=== PATIENT | male | born 1955 | race Caucasian/White ===

== ENCOUNTER 2024-08-05 01:43 | Observation (INO) | payer OTHER, SELFPAY ==
[2024-08-04 19:58] VITALS: BP 148/69
[2024-08-04 20:26] LABS: % Basophils 0.2 % (0-2); % Immature Granulocytes 0.6 % (0-0.5); % Lymphocytes 3.9 % (20.5-51.1); % Monocytes 10.4 % (1.7-9.3); % Neutrophils 84.9 % (42.2-75.2); Absolute Immature Granulocytes 0.1 10^3/uL (0-0.05); Absolute Lymphocytes 0.7 10^3/uL (1.2-3.4); Absolute Monocytes 1.9 10^3/uL (0.1-0.6); Absolute Neutrophils 15.2 10^3/uL (1.4-6.5); Hematocrit 31.8 % (39.0-52.0); Hemoglobin 10.5 g/dL (13.0-18.0); Mean Corpuscular Hgb 33.9 pg (27.0-31.0); Mean Corpuscular Volume 102.6 fL (80.0-94.0); Mean Platelet Volume 10.7 fL (7.4-10.4); Nucleated Red Blood Cells % 0 % (-); Platelet Count 185 10^3/uL (130-400); Red Cell Dist. Width 13.4 % (11.5-14.5); White Blood Cell Count 17.9 10^3/uL (4.8-10.8)
[2024-08-04 20:27] LABS: Urine Albumin 3+ (Neg - Trace); Urine Bilirubin Negative (Negative); Urine Character Cloudy (Clear); Urine Color Yellow; Urine Glucose Negative (Negative); Urine Ketone Negative (Negative); Urine Leukocyte 2+ (Negative); Urine Nitrite Negative (Negative); Urine Occult Blood 4+ (Negative); Urine Specific Gravity 1.025 (<1.030); Urine Urobilinogen 1+ (Neg - 1+)
[2024-08-04 20:34] LABS: Urine Red Blood Cell 50-60 /HPF (0-2); Urine Squamous Cell 0-2 /LPF (Few)
[2024-08-04 20:35] LABS: Lactic Acid 2.1 mmol/L (0.7-2.0); Urine Bacteria Few (Negative)
[2024-08-04 20:43] LABS: COVID-19 Antigen Negative (Negative)
[2024-08-04 20:46] LABS: ALT (SGPT) 19 U/L (0-50); AST (SGOT) 20 U/L (17-59); Alkaline Phosphatase 53 U/L (38-126); Blood Urea Nitrogen 21 mg/dl (9-20); Calcium 8.8 mg/dl (8.4-10.2); Carbon Dioxide 27 mmol/L (22-30); Chloride 101 mmol/L (98-107); Glucose 177 mg/dl (70-99); Potassium 4.6 mmol/L (3.5-5.1); Sodium 138 mmol/L (135-145); Total Bilirubin 0.9 mg/dl (0.2-1.3); Total Protein 6.9 g/dl (6.3-8.2); eGFR 50.71
[2024-08-04 21:47] VITALS: BMI 32.7
[2024-08-04 22:43] VITALS: BP 155/70
[2024-08-04] MEDS: NSS 1000 IV (22:43)
[2024-08-04] MEDS: ROCEPHIN 1000 MG IV (23:42)
--- NOTE | 2024-08-04 23:42 | ED.GENMED ---
History of Present Illness
General
Chief Complaint: Fever
Source: patient
Exam Limitations: none
Time Seen by Provider: 08/04/24 21:34
History of Present Illness
History of Present Illness:
68-year-old male presents with fever as high as 101-102 at home with weakness dysuria and hematuria. No cough or vomiting. He has been nauseous. No chest pain or shortness of breath. No flank pain. No other complaints at this time.
Past History
Past History
ED Past Medical History: Cancer (CML in remission, followed at [facility]), HTN and Other (GI bleeding)
ED Past Surgical History: Other (EGD)
Phy Exam
Physical Exam
Physical Exam:
General: Well appearing male NAD
HEENT: Normocephalic atraumatic
Heart: Tachycardic but regular lungs: Clear no wheeze
Abdomen is soft mild suprapubic tenderness no guarding or rebound
Extremities: No cyanosis or edema
Sepsis
Sepsis Screening
Sepsis Assessment: Sepsis
Sepsis Screen
Sepsis Screen: Sepsis
Date: 08/04/24
Time: 23:48
Course
Orders/Labs/Results
Orders:
Orders
08/04/24 20:12
COVID-19 Antigen Urgent
Source: Nasal Swab
Complete Blood Count/With Diff Urgent
Comprehensive Metabolic Panel Urgent
Lactic Acid Q4H
Comment: ON ICE, CANCEL 2ND ORDER IF FIRST LACTIC ACID LEVEL <2
Urinalysis Reflex To Culture Urgent
Date Specimen was Collected: 08/04/24
Time Specimen was Collected: 20:01
Urine Microscopic Reflex Cult Urgent
Influenza A+B Rapid Molecular Urgent
SPARKLE Source: Nasal Swab
Specimen Description:
Date Specimen was Collected: 08/04/24
Time Specimen was Collected: 20:01
Urine Culture Urgent
SPARKLE Source: U
Specimen Description:
Date Specimen was Collected: 08/04/24
Time Specimen was Collected: 20:01
08/04/24 22:40
CT Abd/pel Without Iv Or Oral Urgent
Comment:
Reason For Exam: hematuria
0.9% Sodium Chloride 1000 ml [Nss] 1,000 ml IV BOLUS
08/04/24 23:35
CefTRIAXone [Rocephin] 1,000 mg IV NOW STA
08/04/24 23:39
Sterile Water [Sterile Water For Injection] 10 ml .ROUTE .[facility]
08/04/24 23:45
Blood Culture Q30M
SPARKLE Source: Blood/Venous
Specimen Description:
08/05/24 00:15
Lactic Acid Q4H
Comment: ON ICE, CANCEL 2ND ORDER IF FIRST LACTIC ACID LEVEL <2
Blood Culture Q30M
SPARKLE Source: Blood/Venous
Specimen Description:
Abnormal Lab Results
08/04/24
20:12
WBC 17.9 H 10^3/uL
(4.8-10.8)
RBC 3.10 L 10^6/uL
(4.70-6.10)
Hgb 10.5 L g/dL
(13.0-18.0)
Hct 31.8 L %
(39.0-52.0)
MCV 102.6 H fL
(80.0-94.0)
MCH 33.9 H pg
(27.0-31.0)
MPV 10.7 H fL
(7.4-10.4)
Abs Immat Gran (auto) 0.1 H 10^3/uL
(0-0.05)
Absolute Neuts (auto) 15.2 H 10^3/uL
(1.4-6.5)
Absolute Lymphs (auto) 0.7 L 10^3/uL
(1.2-3.4)
Absolute Monos (auto) 1.9 H 10^3/uL
(0.1-0.6)
Immature Gran % 0.6 H %
(0-0.5)
Neutrophils % 84.9 H %
(42.2-75.2)
Lymphocytes % 3.9 L %
(20.5-51.1)
Monocytes % 10.4 H %
(1.7-9.3)
BUN 21 H mg/dl
(9-20)
Creatinine 1.5 H mg/dL
(0.7-1.3)
Glucose 177 H mg/dl
(70-99)
Lactic Acid 2.1 H mmol/L
(0.7-2.0)
Ur Occult Blood Reflex 4+ A
(Negative)
Leukocyte Esterase Rfl 2+ A
(Negative)
Urine RBC 50-60 A /HPF
(0-2)
Urine Bacteria (Reflex) Few A
(Negative)
Urine Albumin (Reflex) 3+ A
(Neg - Trace)
08/04/24 20:12
08/04/24 20:12
Vital Signs
Initial and Last Documented VS:
Initial Vital Signs
Temp Pulse Resp BP Pulse Ox
98.5 F 112 24 148/69 96
08/04/24 19:58 08/04/24 19:58 08/04/24 19:58 08/04/24 19:58 08/04/24 19:58
Last Documented Vital Signs
Temp Pulse Resp BP Pulse Ox
98.7 F 98 19 148/69 94
08/04/24 21:49 08/04/24 22:30 08/04/24 22:00 08/04/24 19:58 08/04/24 22:15
MDM/Problems Addressed
Differential Diagnosis Includes:
Patient with fever dysuria and hematuria. Question UTI versus kidney stone versus cystitis
Will check COVID and flu test secondary to fever
COVID and flu were negative. Urinalysis shows hematuria with few bacteria and 6-10 white blood cells per high-power field. CT findings suggestive of cystitis. White count of 17.9 with a lactic of 2.1. Initially he was tachycardic. Will order
fluids and treat with Rocephin and admit to hospital for cystitis
*Critical Care Note
Total Time (30-74mins, 75-104mins- exclusive of procedures): Not Applicable
ED Attending Note
-
Portions of this chart may have been created with voice recognition software.� Occasional wrong word or��sound alike� substitutions may have occurred due to the inherent limitations of voice recognition software.
Discharge Plan
Departure
Patient Disposition: Admit
Date of Disposition: 08/04/24
Time of Disposition: 23:47
Presentation/result/management discussed w/ accepting MD/DO: Hospitalist
Discharge Problem:
Cystitis
Prescriptions:
No Action
methotrexate sodium 2.5 mg Tablet
2.5 mg PO QMWF
amlodipine 10 mg Tablet
10 mg PO DAILY
folic acid 1 mg Tablet
1 mg PO DAILY
losartan 100 mg Tablet
100 mg PO DAILY
imatinib 400 mg Tablet
400 mg PO .@ 1200
pantoprazole [Protonix] 40 mg tablet,delayed release (DR/EC)
40 mg PO Q12H Qty: 60 0RF
ferrous sulfate 325 mg (65 mg iron) Tablet
325 mg PO Q48H Qty: 0 0RF
Interventions
Interventions:
*Risk Screen - Suicide Last Done: 08/04/24 21:47
*General Assessment Last Done: 08/04/24 21:47
*Neglect/Abuse Screening Last Done: 08/04/24 21:47
*ED- Fall Risk Assessment Last Done: 08/04/24 21:47
*ED COVID-19 Vaccine History Last Done: 08/04/24 21:47
ED-Male Genitourinary Assessment Last Done: 08/04/24 22:37
ED- Neurological Assessment Last Done: 08/04/24 22:37
ED-Skin Assessment Last Done: 08/04/24 22:37
Discharge Date and Time
Print Language: MACEDONIAN
[2024-08-04] MEDS: ZOFRAN 4 MG IV (23:53)
[2024-08-05 00:30] LABS: Lactic Acid 1.1 mmol/L (0.7-2.0)
--- NOTE | 2024-08-05 01:19 | HPS.HSE ---
Family Physician
-
Family Physician: Aliyah Garza
Chief Complaint
-
Fever, hematuria
History of Present Illness
68-year-old with past medical history significant for CML on imatinib, hypertension, GERD with history of GI bleed, rheumatoid arthritis on Plaquenil who presents to the emergency department with approximately 2 days of intermittent fevers with
urinary symptoms and hematuria.
Patient apparently started having urinary frequency on Tuesday. He also had dysuria. He then had hematuria twice today. He said he had a fever at home and was having shaking chills. He denies any flank pain. He denies nausea or vomiting. He has
no recent instrumentation. He denies any history of kidney stones. He denies any history of BPH, prostate cancer, urinary retention, radiation or urological surgery. He has no prior history of UTI. He reports he has been on imatinib for over 20
years. He is not on any other immunosuppressants.
In the emergency department the patient was afebrile, blood pressure was 140/60 with a pulse of 98 and was satting 94% on room air. He had a white count of 17, hemoglobin and platelets show at 10.5 and 185 respectively. Initial lactic acid was
2.1. BUN and creatinine slightly increased compared to his baseline of 1. Creatinine was 1.5.
UA was positive with RBCs WBCs and a few bacteria. He had a CT of the abdomen pelvis showing urinary wall bladder thickening and stranding of the fat surrounding the bladder consistent with cystitis. Kidneys appeared normal and there was no
evidence of ureteral calculi.
Medical History
Past Medical History
Past Medical History: Reports Cancer (CML), GERD, HTN and Other (Rheumatoid arthritis)
Past Surgical History: Reports None
Social History
Tobacco: Non-smoker
Alcohol: Occasional
Drug: None
Personal:
Living: With Family
Employment: Employed
Family History
Family History: Not pertinent
Allergies / Home Medications
Allergies reflects when Allergies were last updated in [facility].
Home Medications with original date entered in [facility]
Allergy/Medication List:
Allergies
Allergy/AdvReac Type Severity Reaction Status Date / Time
aspirin Allergy Unknown Verified 08/15/22 21:58
Home Medications
amlodipine 10 mg tablet 10 mg PO DAILY Blood pressure 02/28/22
imatinib 400 mg tablet 400 mg PO .@ 1200 Autoimmune disorder 02/28/22
losartan 100 mg tablet 100 mg PO DAILY Blood pressure 02/28/22
hydroxychloroquine 200 mg tablet (Plaquenil) 200 mg PO BID 08/04/24
pantoprazole 20 mg tablet,delayed release 20 mg PO DAILY 08/04/24
Review of Systems
-
History Source: Patient
Constitutional: Reports Fever
EENT: Reports No Symptoms
Respiratory: Reports No Symptoms
Cardiac: Reports No Symptoms
Abdomen/GI: Reports No Symptoms
: Reports Dysuria, Frequency and Bleeding
Musculoskeletal: Reports No Symptoms
Skin: Reports No Symptoms
Neurological: Reports No Symptoms
Endocrine: Reports No Symptoms
Hematologic/Lymphatic: Reports No Symptoms
Psych: Reports No Symptoms
Physical Exam
Vital Signs
Vital Signs
Temp Pulse Resp BP Pulse Ox
99.0 F 99 19 155/70 93
08/05/24 00:00 08/05/24 01:00 08/05/24 00:00 08/04/24 22:43 08/05/24 00:45
Physical Exam
General: Well Developed, Well Nourished and Conversant
HEENT: NormoCephalic, Anicteric, Moist mucous membranes, Atraumatic and PERRLA; No Oxygen
Respiratory: Clear
Cardiac: S1/S2 and Regular Rhythm
Breast: Deferred by me
GI: Soft, Non Tender, Non Distended and Normal Bowel Sounds
Rectal: Deferred by Provider
Genito-urinary: Deferred by me
Musculoskeletal: No Clubbing, No Cyanosis and No Edema
Skin: Warm
Neuro: AO x 3 and Nonfocal/grossly intact
Hematologic/Lymphatic: No Lymphadenopathy
Psych: Calm
Laboratory Results
-
08/04/24 20:12
08/04/24 20:12
Laboratory Results
Lactic Acid 1.1 mmol/L (0.7-2.0) 08/05/24 00:10
Total Bilirubin 0.9 mg/dl (0.2-1.3) 08/04/24 20:12
AST 20 U/L (17-59) 08/04/24 20:12
ALT 19 U/L (0-50) 08/04/24 20:12
Alkaline Phosphatase 53 U/L (38-126) 08/04/24 20:12
Data Reviewed
-
CT Scan: Report Reviewed by me
Lab Data: Labs Reviewed by me
Impression/Plan
-
IMPRESSION:
This is a 68-year-old with history of CML, rheumatoid arthritis, hypertension and GERD presents to the emergency department with fever, urinary frequency, hematuria and found to have cystitis on imaging, has a positive UA and significant peripheral
leukocytosis to 17. The picture is clearly consistent with acute cystitis. Unclear predisposing factors as patient has no history of urinary retention, BPH, kidney stones, surgery instrumentation or significant immunosuppression. No known
malignancy.
PLAN:
1. Cystitis - complicated, no evidence of prostatitis or pyelo
- admit to med/surg
- blood and urine cultures sent
- viral panel negative
- IV ceftriaxone for now
- will need repeat u/a for hematuria after completion of abx. If +, will need urology outpatient.
2. HTN
- continue amlodipine and losartan
3. CML
- continue imatinib
4. CKD - I suspect C r1.5 is CKD possibly in setting of arb use
- IV fluids overnigh and monitor for urinary retention
DVT PPX - heparin sq
Code status full code
[2024-08-05] MEDS: NSS 1000 IV (05:13)
[2024-08-05 05:30] LABS: Hematocrit 27.6 % (39.0-52.0); Hemoglobin 9.4 g/dL (13.0-18.0); Mean Corp Hgb Conc. 34.1 g/dL (33.0-37.0); Mean Corpuscular Hgb 34.4 pg (27.0-31.0); Mean Corpuscular Volume 101.1 fL (80.0-94.0); Mean Platelet Volume 10.6 fL (7.4-10.4); Platelet Count 164 10^3/uL (130-400); Red Blood Cell Count 2.73 10^6/uL (4.70-6.10); Red Cell Dist. Width 13.5 % (11.5-14.5); White Blood Cell Count 13.7 10^3/uL (4.8-10.8)
[2024-08-05 05:42] LABS: Blood Urea Nitrogen 19 mg/dl (9-20); Calcium 8.2 mg/dl (8.4-10.2); Carbon Dioxide 28 mmol/L (22-30); Chloride 104 mmol/L (98-107); Estimated Creatinine Clearance 62 ml/min; Glucose 152 mg/dl (70-99); Potassium 4.1 mmol/L (3.5-5.1); Sodium 137 mmol/L (135-145); eGFR > 60.00
[2024-08-05] MEDS: TYLENOL 650 MG PO ×2 (08:27→18:28)
[2024-08-05] MEDS: HEPARIN 5000 UNITS SC ×2 (08:28→17:07)
[2024-08-05] MEDS: NORVASC 10 MG PO (08:28)
[2024-08-05] MEDS: PLAQUENIL 200 MG PO (08:28)
[2024-08-05 08:33] VITALS: BP 135/71
[2024-08-05] MEDS: COZAAR 100 MG PO (08:35)
[2024-08-05] MEDS: PROTONIX 20 MG PO (08:36)
--- NOTE | 2024-08-05 08:41 | W.PN.HOSP.TC ---
Today's Communication/Plan
-
Continue antibiotics
Follow cultures
Assessment / Plan
Assessment / Plan
Physical Exam
General: Not in acute distress
HEENT: Normocephalic, Moist mucous membranes
Respiratory: Clear to Auscultation Bilaterally
Cardiac: S1/S2 and Regular Rhythm
GI: Soft, Non Tender, Non Distended and Normal Bowel Sounds
Musculoskeletal: No Cyanosis and No Edema
Skin: Warm. Dry.
Neuro: AAO x 3 and Nonfocal/grossly intact
Psych: Calm
Assessment/Plan
68-year-old with past medical history significant for CML on imatinib, hypertension, GERD with history of GI bleed, rheumatoid arthritis on Plaquenil who presents to the emergency department with approximately 2 days of intermittent fevers, shaking
chills, dysuria, urinary frequency, and hematuria. Patient apparently started having urinary frequency 1-2 days prior to presentation. He denied any flank pain. He denied nausea or vomiting. He had no recent instrumentation. He denied any history
of kidney stones. He denied any history of BPH, prostate cancer, urinary retention, radiation or urological surgery. He has no prior history of UTI. He reported he has been on imatinib for over 20 years. He is not on any other
immunosuppressants. In the emergency department the patient was afebrile, blood pressure was 140/60 with a pulse of 98 and was satting 94% on room air. He had a white count of 17, hemoglobin and platelets show at 10.5 and 185 respectively. Initial
lactic acid was 2.1. BUN and creatinine slightly increased compared to his baseline of 1. Creatinine was 1.5. UA was positive with RBCs WBCs and a few bacteria. He had a CT of the abdomen pelvis showing urinary wall bladder thickening and
stranding of the fat surrounding the bladder consistent with cystitis. Kidneys appeared normal and there was no evidence of ureteral calculi.
Complicated UTI with (Acute Cystitis with Systemic Symptoms in a 68 y/o male with comorbid conditions)
Hematuria -- from UTI?
- Follow blood and urine cultures sent
- viral panel negative
- IV ceftriaxone for now
- will need repeat u/a for hematuria after completion of abx. If +, will need urology outpatient.
Concern for KIM vs. CKD
-Creatinine improved after receiving IV fluids
Hypertension
- continue amlodipine and losartan
CML
- continue imatinib
Rheumatoid Arthritis
-Takes Plaquenil outpatient
GERD with history of GI Bleed
DVT Prophylaxis: heparin sq
Code Status: full code
Anticipated Discharge: 24 - 48 hours
Subjective/Interval History
-
Date of Service: August 05, 2024
Patient was seen and examined. He said that he is still having blood in his urine. He is doing okay.
Objective Data
-
Labs:
Laboratory Results
08/04/24 08/05/24
20:12 05:14
WBC 13.7 H
Hgb 9.4 L
Hct 27.6 L
Plt Count 164
Sodium 138 137
Potassium 4.6 4.1
Chloride 101 104
Carbon Dioxide 27 28
BUN 21 H 19
Creatinine 1.5 H 1.3
Glucose 177 H 152 H
Calcium 8.8 8.2 L
Total Bilirubin 0.9
AST 20
ALT 19
Alkaline Phosphatase 53
Vital Signs:
Vital Signs
Temp Pulse Resp BP Pulse Ox
99.0 F 84 18 135/77 95
08/05/24 00:00 08/05/24 08:35 08/05/24 06:00 08/05/24 08:35 08/05/24 05:20
[2024-08-05 14:46] VITALS: BMI 32.6
[2024-08-05 15:00] VITALS: BP 123/56
--- NOTE | 2024-08-05 15:07 | PTCARENOTE ---
Rec'd pt from ER. pt walked from stretcher to bed. Denies pain. States he has occassional pain with urination. Oriented to room. Call asif in reach.
[2024-08-05] MEDS: NON-FORMULARY ITEM 400 MG PO (20:08)
[2024-08-05 23:20] VITALS: BP 104/54
[2024-08-05] MEDS: ROCEPHIN 1000 MG IV (23:37)
[2024-08-05] MEDS: HEPARIN SC ×2 (23:37→23:46)
[2024-08-05] MEDS: STERILE WATER FOR INJECTION 10 ML IV (23:39)
[2024-08-06 07:00] VITALS: BP 121/66
[2024-08-06] MEDS: COZAAR 100 MG PO (08:09)
[2024-08-06] MEDS: HEPARIN 5000 UNITS SC (08:09)
[2024-08-06] MEDS: PROTONIX 20 MG PO (08:09)
[2024-08-06] MEDS: PLAQUENIL 200 MG PO (08:09)
[2024-08-06] MEDS: NORVASC 10 MG PO (08:09)
[2024-08-06 08:23] LABS: % Basophils 0.3 % (0-2); % Eosinophils 1.1 % (0-6); % Immature Granulocytes 0.4 % (0-0.5); % Lymphocytes 6.9 % (20.5-51.1); % Monocytes 11.8 % (1.7-9.3); % Neutrophils 79.5 % (42.2-75.2); Absolute Eosinophils 0.1 10^3/uL (0-0.7); Absolute Lymphocytes 0.7 10^3/uL (1.2-3.4); Absolute Monocytes 1.2 10^3/uL (0.1-0.6); Hematocrit 27.5 % (39.0-52.0); Hemoglobin 9.1 g/dL (13.0-18.0); Mean Corp Hgb Conc. 33.1 g/dL (33.0-37.0); Mean Corpuscular Hgb 33.7 pg (27.0-31.0); Mean Corpuscular Volume 101.9 fL (80.0-94.0); Mean Platelet Volume 10.8 fL (7.4-10.4); Nucleated Red Blood Cells % 0 % (-); Platelet Count 163 10^3/uL (130-400); Red Cell Dist. Width 13.2 % (11.5-14.5)
[2024-08-06 08:40] LABS: Blood Urea Nitrogen 25 mg/dl (9-20); Calcium 8.5 mg/dl (8.4-10.2); Carbon Dioxide 27 mmol/L (22-30); Chloride 108 mmol/L (98-107); Estimated Creatinine Clearance 67 ml/min; Glucose 132 mg/dl (70-99); Potassium 4.5 mmol/L (3.5-5.1); Sodium 141 mmol/L (135-145); eGFR > 60.00
--- NOTE | 2024-08-06 10:02 | W.PN.HOSP.TC ---
Today's Communication/Plan
-
cont Abx pendning final Cx
Assessment / Plan
Assessment / Plan
68yo M with PMHX of CML in remission, HTN, GERD, came with wweakness, fevers and burning with urination 3 days before admission. Managed for Cystitis
A/P:
#UTI in immunocompromized patient
#Hematuria
Outpatient Urologist advised- patient verbalized understanding of the instructions
BCx NTD
Ucx pedning
Rocephin
CT abd/pelvis - no hydronephrosis and no nephrolithiasis
#Atelectasis
Incentive spirometry
#Minimal hiatal hernia
asymptomatic
no follow up advised
#BPH
recent PSA test by [facility] member (as per patient report)
watch for retention
#DJD
PT/OT
#L4-L5 central canal stenosis
asymptomatic
#Asymptomatic cholelithiasis
#Fatty liver
monitor
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
#Essential HTN
#GERD
#RA
cont home meds
DVT ppx
Full code
I have spent at least 37min reviewing chart, test results, communication with consultants and providing direct patient care
Anticipated Discharge: Within 24 hours
Subjective/Interval History
-
Date of Service: August 06, 2024
Objective Data
-
Labs:
Laboratory Results
08/06/24
07:56
WBC 10.0
Hgb 9.1 L
Hct 27.5 L
Plt Count 163
Sodium 141
Potassium 4.5
Chloride 108 H
Carbon Dioxide 27
BUN 25 H
Creatinine 1.2
Glucose 132 H
Calcium 8.5
Vital Signs:
Vital Signs
Temp Pulse Resp BP Pulse Ox
98.3 F 86 19 121/66 94
08/06/24 07:00 08/06/24 07:00 08/06/24 07:00 08/06/24 07:00 08/06/24 07:00
I&O
08/05/24 08/06/24 08/07/24
06:59 06:59 06:59
Intake Total 480 / 480
Balance 480 / 480
Review of Systems
-
History Source: Patient
All other systems: Reviewed and negative
Physical Exam
-
General: No Apparent Distress
HEENT: Normocephalic
Respiratory: Clear to Auscultation
Cardiac: Regular Rhythm
GI: Soft, Nontender and Nondistended
Neuro: Awake, Alert, Oriented and AO x 3
Psych: Calm
[2024-08-06 10:54] LABS: Iron 26 ug/dl (49-181)
[2024-08-06 11:03] LABS: Percent Saturation 9 % (20-50); Total Iron Binding Capacity 276 ug/dl (261-462)
[2024-08-06 11:29] LABS: Ferritin 51.7 ng/ml (17.9-464.0)
[2024-08-06 12:00] LABS: Folate 13.9 ng/ml (2.76-20); Vitamin B12 364 pg/ml (239-931)
--- NOTE | 2024-08-06 13:12 | W.DCSUMMARY ---
Discharge Summary
Discharge Data
Date of Admission: 08/05/24
Date of Discharge: 08/06/24
-
Pending Results: No
Hospital Course
68yo M with PMHX of CML in remission, HTN, GERD, came with wweakness, fevers and burning with urination 3 days before admission. Managed for Cystitis. UCx with neg growth. Since patient improved on Ceftriaxone- reasonable to complete total 2 weeks
of Abx ewith cefdinir (patient immunocompromized). Outpatient referral to Urologist provided. Medcially stable for d/c
I have spent at least 37min reviewing chart, test results, communication with consultants and providing direct patient care
Patient was managed for:
#UTI in immunocompromised patient
#Hematuria
#Atelectasis
#Minimal hiatal hernia
#BPH
#DJD
#L4-L5 central canal stenosis
#Asymptomatic cholelithiasis
#Fatty liver
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
#Essential HTN
#GERD
#RA
Discharge Plan
-
Patient Disposition: Home (Routine Discharge)
Discharge Diagnosis/Procedures: UTI
Diet: Regular
Driving Restrictions: As prior to admission
Referrals:
Aliyah Garza MD [Family Provider] -
Michel Dietrich MD [Active] - in three to four weeks (hematuria)
Prescriptions:
New
ferrous sulfate 325 mg (65 mg iron) tablet
325 mg PO DAILY Qty: 30 0RF
cefdinir 300 mg capsule
300 mg PO BID Qty: 26 0RF
Probiotic 3 billion cell capsule
3,000 mmu cells PO DAILY Qty: 30 0RF
Continued
amlodipine 10 mg Tablet
10 mg PO DAILY
losartan 100 mg Tablet
100 mg PO DAILY
imatinib 400 mg Tablet
400 mg PO .@ 1200
pantoprazole 20 mg Tablet,Delayed Release (Dr/Ec)
20 mg PO DAILY
hydroxychloroquine [Plaquenil] 200 mg Tablet
200 mg PO DAILY
Patient Comments:
pt states he only takes one pill in the morning. Only takes 200mg total
Discharge Orders:
Discharge Patient (As Directed); Ordered 08/06/24
Ordered By: Andrew Tomlinson
Discharge Date and Time
Print Language: [place]AP[place]
--- NOTE | 2024-08-06 14:42 | CM ---
oracle database manager reviewed patient's chart and met with patient and patient states he resides with his spouse in a 2 story home, patient is independent with adl's and ambulation, no dme, patient drives, home today no needs. OBS letter provided to patient.
PCP: Aliyah Garza
Pharmacy: [facility] on [facility].
[2024-08-06 15:56] VITALS: BP 129/59
== END 2024-08-06 16:54 | disposition home or self-care (01) ==
LOC: 4 WEST ACU 01:43
PROVIDERS: Emergency Medicine; Hospitalist; ADMITTING PHYSICIAN Internal Medicine; ATTENDING PHYSICIAN Internal Medicine; EMERGENCY PHYSICIAN Emergency Medicine; FAMILY PHYSICIAN Internal Medicine
DX: N30.01 Acute cystitis with hematuria (principal); R50.9 Fever, unspecified; Z11.52 Encounter for screening for COVID-19; I12.9 Hypertensive chronic kidney disease with stage 1 through stage 4 chronic kidney disease, or unspecified chronic kidney disease; C92.10 Chronic myeloid leukemia, BCR/ABL-positive, not having achieved remission; M06.9 Rheumatoid arthritis, unspecified; K21.9 Gastro-esophageal reflux disease without esophagitis; J98.11 Atelectasis; K44.9 Diaphragmatic hernia without obstruction or gangrene; N40.0 Benign prostatic hyperplasia without lower urinary tract symptoms; M19.90 Unspecified osteoarthritis, unspecified site; K80.20 Calculus of gallbladder without cholecystitis without obstruction; K76.0 Fatty (change of) liver, not elsewhere classified; D64.9 Anemia, unspecified; D84.821 Immunodeficiency due to drugs
CPT/HCPCS: 74176; 80048; 80053; 81003; 81015; 82607; 82728; 82746; 83540; 83550; 83605; 85025; 85027; 87040; 87086; 87502; 87811; 96361; 96374; 96375; 99285; G0378